=== PATIENT | female | born 1985 | race African-American/Black ===

== ENCOUNTER → 2023-02-16 | Day surgery (SDC) | payer OTHER ==
[2023-02-12 09:46] VITALS: BMI 33.0
[~2023-02-16] MED LIST: ACETAMINOPHEN 325 MG TABLET (FP) PO ONE; ASCORBIC ACID 500 MG TABLET (FP) PO SCH; MIDAZOLAM HCL 2 MG/2 ML SINGLE DOSE VIAL ONE; MULTIVITAMINS (DAILY MVI) TABLET (FP) PO SCH; PATIENT'S OWN MEDICATION (NON-FORMULARY) (Iron [Iron] 18 MG Tablet) PO SCH; ceFAZolin SODIUM 1 GM VIAL IVPB ONE; oxyCODONE HCL 5 MG TABLET PO ONE
[2023-02-16 13:11] VITALS: RESP 20
[2023-02-16 14:00] VITALS: BP 125/88; PULSE 73; TEMP 97.3
== END | disposition home or self-care (01) ==
LOC: JASU-SURG 05:21
PROVIDERS: ATTEND Obstetrics & Gynecology
PROC: 0U598ZZ Destruction of Uterus, Via Natural or Artificial Opening Endoscopic (ICD-10-PCS; principal; 2023-02-16 09:00)
DX: D25.0 Submucous leiomyoma of uterus (principal); N92.1 Excessive and frequent menstruation with irregular cycle; D50.9 Iron deficiency anemia, unspecified
CPT/HCPCS: 88305-TC; 94760